=== PATIENT | male | born 1980 | race Two or more races ===

== ENCOUNTER 2019-11-16 13:10 | Emergency (ER) | payer BC, OTHER ==
[~2019-11-16] VITALS: Ht 170.2 cm; Wt 68.0 kg
[~2019-11-16 13:10] MED LIST: IBUPROFEN600 MG ORAL; TRAMADOL HCL50 MG ORAL
--- NOTE | 2019-11-16 13:49 | Emergency Room Report ---
History of Present Illness General Chief Complaint: Earache Source: Patient Present Illness HPI 39-year-old male presents to the emergency department complaining of 8 out of 10 severity left-sided ear pain that is been progressive x5 days. Patient reports he used some drops that were [id number] with no relief of his symptoms. Patient reports some muffled hearing. He denies fevers or chills. He denies nasal congestion, rhinorrhea or recent URI. Patient reports he does use Q-tips in an attempt to relieve his symptoms without any relief. Patient denies ear discharge or swelling of the soft tissues of the ear. No other aggravating or relieving factors. Patient reports his onset of symptoms was after getting water in his ear after shower. Allergies: Coded Allergies: No Known Allergies (Unverified , 12/29/14) COVID-19 Screening Contact w/high risk pt: No Recent Travel to affected area: No Experienced COVID-19 symptoms?: No COVID-19 Testing performed [employer]ER: No Patient History Past Medical History: see triage record Past Surgical History: none Pertinent Family History: none Immunizations: UTD Reviewed Nursing Documentation: PMH: Agreed; PSxH: Agreed Nursing Documentation-PMH Past Medical History: No Stated History Review of Systems All Other Systems: negative except mentioned in HPI Physical Exam Vital Signs Date Time Temp Pulse Resp B/P (MAP) Pulse Ox O2 Delivery O2 Flow Rate FiO2 11/16/19 13:19 98.1 64 15 126/82 (97) 97 Room Air Sp02 EP Interpretation: reviewed, normal General Appearance: no apparent distress, alert, GCS 15, non-toxic Head: normocephalic, atraumatic Eyes: bilateral eye normal inspection, bilateral eye PERRL ENT: hearing grossly normal, normal pharynx, normal voice, uvula midline, other - left ear. no evidence of mastoiditis. no d/c or canal swelling. TM is erythematous and bulging. Neck: full range of motion Respiratory: lungs clear, normal breath sounds, speaking full sentences Cardiovascular #1: regular rate, rhythm Musculoskeletal: back normal, normal range of motion, gait/station normal, non- tender Neurologic: alert, motor strength/tone normal, oriented x3, sensory intact, responsive, speech normal Psychiatric: judgement/insight normal Skin: no rash, normal color Lymphatic: no adenopathy Medical Decision Making PA Attestation Dr. Cook is my supervising Physician whom patient management has been discussed with. Diagnostic Impression: Primary Impression: Otitis media Qualified Codes: H66.90 - Otitis media, unspecified, unspecified ear ER Course 39-year-old male presents to the emergency department complaining of 8 out of 10 severity left-sided ear pain that is been progressive x5 days. Patient reports he used some drops that were [id number] with no relief of his symptoms. Patient reports some muffled hearing. He denies fevers or chills. He denies nasal congestion, rhinorrhea or recent URI. Patient reports he does use Q-tips in an attempt to relieve his symptoms without any relief. Patient denies ear discharge or swelling of the soft tissues of the ear. No other aggravating or relieving factors. Patient reports his onset of symptoms was after getting water in his ear after shower. Ddx considered but are not limited to OM, OE, mastoiditis, TM perforation, FB Vital signs: are WNL, pt. is afebrile H&PE are most consistent with otitis media of the left ear. no evidence of mastoiditis. no d/c or canal swelling. TM is erythematous and bulging. ORDERS: none required at this time, the diagnosis is clinical ED INTERVENTIONS: None required at this time. DISCHARGE: At this time pt. is stable for d/c to home. With PO ABX. Will provide printed patient care instructions, and any necessary prescriptions. Care plan and follow up instructions have been discussed with the patient prior to discharge. RX: Augmentin Suspension 600mg/5ml - take 2.5ml BID x 10 days Last Vital Signs Date Time Temp Pulse Resp B/P (MAP) Pulse Ox O2 Delivery O2 Flow Rate FiO2 11/16/19 13:19 98.1 64 15 126/82 (97) 97 Room Air Disposition: HOME, SELF-CARE Condition: Stable Scripts Acetaminophen* (TYLENOL EXTRA STRENGTH*) 500 Mg Tablet 500 MG ORAL Q6H, #20 TAB 0 Refills Prov: Ginny Patel 11/16/19 Amoxicillin/Potassium Clav 875-125* (AUGMENTIN 875-125 TABLET*) 1 Each Tablet 1 TAB ORAL TWICE A DAY for 10 Days, #20 TAB Prov: Ginny Patel 11/16/19 [facility] + [facility] Patient Instructions: Otitis Media, Adult, [id number] Additional Instructions: Take medications as directed. Follow up with a Primary Care Provider in 3-5 days, even if your symptoms have resolved. --Please review list of primary care clinics, if you do not already have a primary care provider Return sooner to ED if new symptoms occur, or current symptoms become worse. - Please note that this Emergency Department Report was dictated using [employer] professional technology software, occasionally this can lead to erroneous entry secondary to interpretation by the dictation equipment. Ginny Patel Nov 16, 2019 13:49
[2019-11-16] MEDS ORDERED: AUGMENTIN 875-1 EAC1 ORAL (13:54)
[2019-11-16] MEDS ORDERED: TYLENOL EXTRA500 MG ORAL (13:54)
[2019-11-16 14:01] VITALS: BP 129/85
[2019-11-16 14:03] VITALS: BP 125/82
== END 2019-11-16 14:05 | disposition home or self-care (01) ==
LOC: EMR 13:20
DX: H66.92 Otitis media, unspecified, left ear (principal)
CPT/HCPCS: 99282

== ENCOUNTER 2020-07-17 10:50 | Emergency (ER) | payer OTHER ==
[~2020-07-17] VITALS: Ht 170.2 cm; Wt 68.0 kg
[~2020-07-17 10:50] MED LIST changes: +AUGMENTIN 875-1 EAC1 ORAL; +TYLENOL EXTRA500 MG ORAL
[2020-07-17 10:54] VITALS: BP 123/82
--- NOTE | 2020-07-17 11:00 | NUR ---
ED Nurse Note: pt walked in to ER due to lower back pain without injury for 2 weeks. pt aao x4 and ambulatory. calm and cooperative. weak gait noted due to lower back pain. no cardiac or pulmonary distress noted at this time.
[2020-07-17] MEDS ORDERED: Ketorolac 60mg Inj IM ONE (11:15)
[2020-07-17] MEDS ORDERED: Cyclobenzaprine 10mg Tab ORAL ONE (12:00)
--- NOTE | 2020-07-17 12:19 | NUR ---
ED Nurse Note: Patient taken to radiology for xray in stable condition.
--- NOTE | 2020-07-17 12:27 | Emergency Room Report ---
History of Present Illness General Chief Complaint: Back Pain-No Injury Source: Patient Present Illness HPI The patient states he has a history of recurrent back pain. He states a couple months ago he had a pretty severe episode of his back pain. He states intermittently he will have thoracic pain and at other times he has low back pain. He states that for the past couple days he has had severe pain in his low back. He states he is unable to move without excruciating pain. He states even from sitting to standing is almost unbearable. He denies trauma. He denies injury. He states that he does not recall any initiating factors that led to this current episode. He denies recent illness. He denies fever or chills. He denies illicit drug use. He denies loss of bowel or bladder control. He denies tingling or numbness. He denies radiation down his legs or weakness. He has no other complaints. Allergies: Coded Allergies: No Known Allergies (Unverified , 12/29/14) COVID-19 Screening Contact w/high risk pt: No Recent Travel to affected area: No Experienced COVID-19 symptoms?: No COVID-19 Testing performed [employer]IEF: No Patient History Past Medical History: none Past Surgical History: none Social History: Denies: smoking, alcohol use, drug use Reviewed Nursing Documentation: PMH: Agreed; PSxH: Agreed Nursing Documentation-PMH Past Medical History: No Stated History Review of Systems All Other Systems: negative except mentioned in HPI Physical Exam Vital Signs Date Time Temp Pulse Resp B/P (MAP) Pulse Ox O2 Delivery O2 Flow Rate FiO2 07/17/20 10:54 98.1 67 18 123/82 (96) 99 Room Air Sp02 EP Interpretation: reviewed, normal General Appearance: no apparent distress, alert, GCS 15, non-toxic Head: normocephalic, atraumatic Eyes: bilateral eye normal inspection ENT: hearing grossly normal, no angioedema, normal voice Neck: normal inspection, full range of motion Respiratory: no respiratory distress, no retraction, no accessory muscle use, speaking full sentences Gastrointestinal: normal inspection, non-distended Rectal: deferred Musculoskeletal: normal range of motion, gait/station normal, tender - TTP along the paraspinal m. bilaterally to include bilateral piriformis. Neurologic: alert, motor strength/tone normal, oriented x3, sensory intact, responsive, speech normal Psychiatric: judgement/insight normal, memory normal, mood/affect normal, no suicidal/homicidal ideation Skin: no rash, normal color Medical Decision Making Diagnostic Impression: Primary Impression: Mechanical back pain Additional Impression: Muscle spasm of back ER Course This patient has a clinical presentation consistent with mechanical back pain. There are no red flags on physical exam. The patient denies any concerning features such as trauma, fevers, night sweats, history of malignancy, pain worse at night, IV drug abuse, urinary/fecal incontinence or retention, focal weakness or change in sensation, or refractory pain. Given these pertinent negatives in the history and physical exam an emergent cause of the back pain such as epidural abscess, metastasis to bone, cauda equina syndrome, and fracture is l ess likely. I also doubt emergent cardiovascular cause of back pain such as aortic dissection a ruptured abdominal aortic aneurysm given patient with equal pulses in all 4 extremities with no diastolic murmur or pulsatile abdominal mass. I did obtain a thoracic and lumbar spine x-ray given that the patient has never had imaging studies of his back. These were unremarkable for any acute bony abnormalities. There was a slight scoliosis identified. The patient was counseled that, though unlikely, the possibility of an emergent cause of back pain may still be present and that the patient should return immediately if symptoms persist or worsen. The symptoms are reproducible with movement. Patient had a benign evaluation and neurologic examination. No emergency etiology was identified. This patient was evaluated in the context of the global COVID-19 pandemic, which necessitated consideration that the patient might be at risk for infection with the [id number] virus that causes COVID-19. Institutional protocols and algorithms that pertain to the evaluation of patients at risk for COVID-19 and the state of rapid change based on information released by multiple regulatory bodies including the CDC and federal and state organizations. These policies and algorithms were followed during the patient's care in the ED. Other X-Ray Diagnostic Results Other X-Ray Diagnostic Results : X-Ray ordered: T-spine/L-spine xrays # of Views/Limited Vs Complete: Complete Indication: Pain EP Interpretation: Yes Interpretation: no fractures Impression: No acute disease Electronically Signed by: DO ALLY Aponte Scribe Text Please see official reports in electronic medical record. Last Vital Signs Date Time Temp Pulse Resp B/P (MAP) Pulse Ox O2 Delivery O2 Flow Rate FiO2 07/17/20 10:54 98.1 67 18 123/82 99 Room Air Status: improved Disposition: HOME, SELF-CARE Condition: Improved Referrals: [facility] (PCP) Patient Instructions: Back Pain, Adult Jade Killian DO Jul 17, 2020 12:27
--- NOTE | 2020-07-17 12:45 | NUR ---
ED Nurse Note: Pt came back from xray and stable.
--- NOTE | 2020-07-17 13:35 | Diagnostic Imaging Report ---
EXAM: X-RAY XRAY T Spine 2v CLINICAL HISTORY: Back pain. COMPARISON: None FINDINGS: Total of 3 views of the thoracic spine were obtained. Alignment is anatomic. There is no fracture, bony lesions or erosions. Joint spaces are unremarkable. Surrounding soft tissue is normal. IMPRESSION: NO ACUTE BONY ABNORMALITY
--- NOTE | 2020-07-17 13:36 | Diagnostic Imaging Report ---
EXAM: X-RAY XRAY L Spine Ltd CLINICAL HISTORY: Back pain. COMPARISON: None FINDINGS: Total of 3 views of the lumbar spine were obtained. Alignment is anatomic. There is no fracture, bony lesions or erosions. Disc space narrowing noted mainly at L5-S1. Surrounding soft tissue is normal. IMPRESSION: NO ACUTE BONY ABNORMALITY.
[2020-07-17] MEDS ORDERED: IBUPROFEN800 MG ORAL (14:07)
[2020-07-17] MEDS ORDERED: CYCLOBENZAPRINE10 MG ORAL (14:07)
[2020-07-17 14:15] VITALS: BP 121/80
--- NOTE | 2020-07-17 14:15 | NUR ---
ER DISCHARGE NOTE: Patient is cleared to be discharged per ERMD, pt is aox4, on room air, with stable vital signs. pt was given dc and prescription instructions, pt was able to verbalize understanding, pt id band removed. pt is able to ambulate with steady gait. pt took all belongings.
== END 2020-07-17 14:15 | disposition home or self-care (01) ==
LOC: EMR 12:12
DX: M54.5 Low back pain (principal); M62.830 Muscle spasm of back
CPT/HCPCS: 72020; 72070; 96372; 99284